=== PATIENT | female | born 1975 | race Asian ===

== ENCOUNTER 2019-09-04 09:29 | Emergency (ER) | payer MEDICARE, MEDICAID, SELFPAY ==
--- NOTE | 2019-09-04 09:38 | ED.URI ---
HPI - URI/Sore Throat General Chief Complaint: Upper Respiratory Infection Stated Complaint: runny nose/cough Time Seen by Provider: 09/04/19 10:05 Source: patient and RN notes reviewed Mode of arrival: ambulatory Limitations: no limitations History of Present Illness HPI Narrative: 44-year-old female presents with concern for runny nose, cough, body aches, fever, scratchy throat that started evening. Reports taking Motrin this morning. MD elicited complaint: fever Related Data Allergies Allergy/AdvReac Type Severity Reaction Status Date / Time amoxicillin Allergy Mild Hives Verified 09/04/19 09:48 adhesive tape Allergy Unknown Rash Verified 09/04/19 09:48 ampicillin Allergy Unknown Hives Verified 09/04/19 09:48 chlorhexidine Allergy Unknown SWELLING Verified 09/04/19 09:48 morphine Allergy Unknown Itching Verified 09/04/19 09:48 Penicillins Allergy Unknown Hives Verified 09/04/19 09:48 pregabalin [From Lyrica] Allergy Dyspnea / Verified 09/04/19 09:49 SOB Review of Systems Review of Systems: Narrative: CONSTITUTIONAL: Reports malaise, chills, sweats, or fever. EYES: Denies visual changes, redness, or discharge. ENT: Reports rhinorrhea, congestion, scratchy throat. Denies sinus pain, otalgia and sore throat. CARDIOVASCULAR: Denies chest pain, palpitations, or edema. RESPIRATORY: Reports cough. Denies dyspnea. GASTROINTESTINAL: Denies abdominal pain, nausea, vomiting, diarrhea SKIN: Denies rash or itching. MUSCULOSKELETAL: Reports myalgia. NEUROLOGIC: Denies headache. All systems reviewed & are unremarkable except as noted in HPI and below PMFSH Family History Family History (Updated 07/05/12 @ 20:29 by DOCTOR UNKNOWN) Other Diabetes mellitus Family history of elevated blood lipids Hypertension Social History Social History Smoking status: Never smoker Second hand tobacco smoke exposure: No Alcohol intake: never Comments At time of signature, agree with nursing past medical, surgical, social and family history. There is no relevant family history pertinent to the presenting complaint Exam Narrative: Exam Narrative: GENERAL: Well-appearing, well-nourished, and in no acute distress. HEAD: Normocephalic EYES: PERRLA, conjunctivae clear ENT: Nares clear, turbinates edematous and erythematous, clear discharge. Mucous membranes moist. TM pearly osuna with dull light reflex bilaterally; no tragal tenderness. Oropharynx not erythematous without lesions. Tonsils not enlarged and without exudate, no drooling, no hoarseness, no trismus, uvula midline. NECK: Supple. No lymphadenopathy CHEST: Clear to auscultation, breath sounds equal. No wheezing, rhonchi, rales, or stridor. No respiratory distress, speaks in full sentences. HEART: Regular rate and rhythm. No murmur heard. SKIN: Warm, dry, no rash. NEURO: Alert and oriented x3. PSYCH: Normal mood and affect Course Course Emergency Course: Patient is aware of diagnosis, understands and agrees to treatment plan. Anticipatory guidance given. Patient agrees to follow-up as directed and is aware of reasons to seek care at the emergency department. Portions of this record may have been created with voice recognition software Vital Signs Vital signs: Vital Signs Temperature 98.3 F 09/04/19 09:39 Pulse Rate 84 09/04/19 09:39 Respiratory Rate 20 09/04/19 09:39 Blood Pressure 139/79 09/04/19 09:39 Pulse Oximetry 99 09/04/19 09:39 Temperature 98.3 F 09/04/19 09:39 Pulse Rate 84 09/04/19 09:39 Respiratory Rate 20 09/04/19 09:39 Blood Pressure 139/79 09/04/19 09:39 Pulse Oximetry 99 09/04/19 09:39 Reviewed. Patient has been instructed to follow up with her primary care provider within the next week regarding her elevated blood pressure today. MDM - URI/Sore Throat MDM Narrative Medical decision making narrative: Differential diagnosis considered: Strep pharyngitis, allergic rhinitis, upper respiratory tract infection
[2019-09-04 09:39] VITALS: BP 139/79; PULSE 84; RESP 20; TEMP 36.8; O2SAT 99
== END 2019-09-04 10:22 | disposition home or self-care (01) ==
PROVIDERS: Emergency Provider Nurse Practitioner
DX: J34.89 Other specified disorders of nose and nasal sinuses (principal); R05 Cough; R50.9 Fever, unspecified; R52 Pain, unspecified; R09.89 Other specified symptoms and signs involving the circulatory and respiratory systems; E78.00 Pure hypercholesterolemia, unspecified; I10 Essential (primary) hypertension; E11.9 Type 2 diabetes mellitus without complications
CPT/HCPCS: 87804; 99213; G0463

== ENCOUNTER 2020-11-21 14:36 | Outpatient (CLI) | payer MEDICARE, MEDICAID, SELFPAY ==
--- NOTE | 2020-11-21 | ECG_ITS ---
Measurements Intervals [place] Rate: 70 P: 59 MI: 174 QRS: 77 QRSD: 105 T: 49 QT: 395 QTc: 428 Interpretive Statements SINUS RHYTHM INCOMPLETE RIGHT BUNDLE BRANCH BLOCK BASELINE ARTIFACT- II, III, AVF BORDERLINE ECG Electronically Signed On 11-21-2020 19:16:17 CDT by Hong Nagy D.O.
[2020-11-21 16:19] LABS: Anion Gap 10 mmol/L (8-16); Blood Urea Nitrogen 13 mg/dL (7-17); Calcium 9.9 mg/dL (8.4-10.2); Carbon Dioxide 23 mmol/L (22-30); Chloride 108 mmol/L (98-107); Estimated Glomerular Filt Rate > 60; Glucose 104 mg/dL (65-105); Potassium 3.7 mmol/L (3.4-5.0); Sodium 141 mmol/L (137-145)
== END 2020-11-21 14:37 | disposition home or self-care (01) ==
LOC: ANHLAB 14:40
PROVIDERS: Visit Provider Orthopaedic Surgery
DX: Z01.818 Encounter for other preprocedural examination (principal); I10 Essential (primary) hypertension; I45.10 Unspecified right bundle-branch block
CPT/HCPCS: 36415; 80048; 93005